=== PATIENT | male | born 1980 | race Caucasian/White ===

== ENCOUNTER 2017-07-27 07:54 | Emergency (ER) | payer MEDICAID ==
[~2017-07-27] VITALS: Ht 188 cm; Wt 132.9 kg
[2017-07-27 08:00] VITALS: BP 128/58
[2017-07-27] MEDS ORDERED: cefTRIAXone SOD 1,000 MG VL IM ONE (08:30)
== END 2017-07-27 09:25 | disposition home or self-care (01) ==
LOC: ER 07:54
DX: J32.9 Chronic sinusitis, unspecified (principal)
CPT/HCPCS: 70486; 93005